=== PATIENT | male | born 1960 | race Caucasian/White ===

== ENCOUNTER 2017-07-09 11:57 | Emergency (ER) | payer BC ==
[2017-07-09] MEDS ORDERED: methylPREDNISolone Sodium Succinate 125 MG/2 ML SDV IVPUSH ONE (12:16)
[2017-07-09] MEDS ORDERED: Albuterol/Ipratropium 3.0-0.5 MG/3 ML Neb Soln NEB ONE (12:16)
[2017-07-09] MEDS ORDERED: Sodium Chloride 0.9% 10 ML Syringe FLUSH PRN (12:16)
[2017-07-09] MEDS ORDERED: Sodium Chloride 0.9% 2.5 ML Syringe FLUSH PRN (12:16)
--- NOTE | 2017-07-09 12:20 | EDM.PDOC ---
ED HPI GENERAL MEDICAL PROBLEM - General Chief Complaint: Respiratory Problem Stated Complaint: CHEST CONGESTION Time Seen by Provider: 07/09/17 12:10 - History of Present Illness INITIAL COMMENTS - FREE TEXT/NARRATIVE: HISTORY AND PHYSICAL: History of present illness: The patient is a 57-year-old male who follows in our family practice clinic but has not been there recently and did not get his influenza shot this year and presents with complaints of shortness of breath wheezing coughing congestion for the last several days. According to the he has been feeling rundown and coughing for the last 2-3 days and he felt very short of breath last evening so he did a nebulizer treatment which improved his symptoms significantly. The patient has a nebulizer machine at home to use as needed because he has a history of sarcoidosis and has had pneumonia several times in the past. He has not been using it regularly. The patient was a smoker until several years ago when he has quit. Patient says the cough has been productive of phlegm but is not bloody or green and he has not had a fever nasal congestion or sore throat. She's been eating and drinking normally and has no abdominal pain nausea or vomiting. He says that he does feel short of breath currently any last get nebulizer treatment at approximately 9 AM, 3 hours ago. He says the nebs significantly improve his symptoms and he has not been on steroids for quite some time. He has no leg pain or swelling but he does feel chest discomfort and tightness when he feels like he cannot take a deep breath. His chest discomfort is bilateral. Review of systems: As per history of present illness and below otherwise all systems reviewed and negative. Past medical history: As per history of present illness and as reviewed below otherwise noncontributory. Surgical history: As per history of present illness and as reviewed below otherwise noncontributory. Social history: No reported history of drug or alcohol abuse. Family history: As per history of present illness and as reviewed below otherwise noncontributory. Physical exam: Gen.: Well-developed well-nourished overweight man who is nontoxic but speaking clearly in the ED without breathlessness. Vital signs have been reviewed by me. HEENT: Atraumatic, normocephalic, pupils reactive, negative for conjunctival pallor or scleral icterus, mucous membranes moist, throat clear, neck supple, nontender, trachea midline. Lungs: Diminished air exchange throughout all browning with a fine expiratory wheeze in the bases, there is no work of breathing or sensory muscle use, breath sounds equal bilaterally, chest nontender. Heart: S1S2, regular, negative for clicks, rubs, or JVD. Abdomen: Soft, nondistended, nontender. Negative for masses or hepatosplenomegaly. Negative for costovertebral tenderness. Pelvis: Stable nontender. Genitourinary: Deferred. Rectal: Deferred. Extremities: Atraumatic, negative for cords or calf pain. Neurovascular unremarkable. No pedal edema or leg asymmetry Neuro: Awake, alert, oriented. Cranial nerves II through XII unremarkable. Cerebellum unremarkable. Motor and sensory unremarkable throughout. Exam nonfocal. Diagnostics: EKG chest x-ray CBC CMP troponin influenza lactic acid Therapeutics: IV IV fluids duo neb Solu-Medrol Rocephin I discussed with the patient and at bedside all testing results and the patient overall says he feels improved. He has no longer wheezing and is moving air much better on my reevaluation with only a very fine squeaky expiratory wheeze at the left base. His oxygen saturation has always been good here. Patient was offered admission and says he would prefer to try to go home as he has a nebulizer machine at home with albuterol. I will prescribe duo nebs as well as an inhaler and spacer for home. I will give him prednisone for home. Because of his high risk profile and given him a dose of Rocephin here and will send him home on Cefdnir to start tomorrow. I've advised him to have close follow-up with his provider the clinic and reasons to return to the ED. Impression: Bronchitis/bronchospasm with history of sarcoidosis improved Definitive disposition and diagnosis as appropriate pending reevaluation and review of above. Middle Chest Pain Score (Numeric/FACES): 8 - Related Data Allergies Allergy/AdvReac Type Severity Reaction Status Date / Time No Known Allergies Allergy Verified 07/09/17 12:09 Home Meds: Home Meds Albuterol [Ventolin HFA] 1 - 2 puff INH Q4H PRN 11/23/15 [History] Albuterol/Ipratropium [DuoNeb 3.0-0.5 MG/3 ML] 3 ml NEB ASDIRECTED 07/09/17 [ History] amLODIPine Besylate/Benazepril [Amlodipine-Benazepril 10-20 MG] 1 tab PO DAILY 07/09/17 [History] Past Medical History HEENT History: Reports: Other (See Below) Other HEENT History: wears glasses, has dentures but does not wear them Cardiovascular History: Reports: Hypertension Respiratory History: Reports: Pneumonia, Recurrent, Pulmonary Fibrosis, Other ( See Below) Other Respiratory History: sarcoidosis Gastrointestinal History: Reports: Hepatitis Other Gastrointestinal History: hx of Hepatitis C, states has been clear 6 months Genitourinary History: Reports: None Musculoskeletal History: Reports: Fracture Other Musculoskeletal History: hx of fx ankle, wrist, fingers Neurological History: Reports: None Psychiatric History: Reports: None Endocrine/Metabolic History: Reports: Obesity/BMI 30+ Hematologic History: Reports: None Immunologic History: Reports: None Oncologic (Cancer) History: Reports: None Dermatologic History: Reports: None - Infectious Disease History Infectious Disease History: Reports: Hepatitis C - Past Surgical History Head Surgeries/Procedures: Reports: None Cardiovascular Surgical History: Reports: None Male Surgical History: Reports: None Endocrine Surgical History: Reports: None Neurological Surgical History: Reports: None Oncologic Surgical History: Reports: None Dermatological Surgical History: Reports: None Social & Family History - Family History Family Medical History: Noncontributory - Tobacco Use Smoking Status *Q: Former Smoker Years of Tobacco use: 20 Used Tobacco, but Quit: Yes Month Tobacco Last Used: 2013 - Caffeine Use Caffeine Use: Reports: Energy Drinks, Soda - Alcohol Use Days Per Week of Alcohol Use: 1 Number of Drinks Per Day: 1 Total Drinks Per Week: 1 - Recreational Drug Use Recreational Drug Use: No ED ROS GENERAL - Review of Systems Review Of Systems: ROS reveals no pertinent complaints other than HPI. ED EXAM, GENERAL - Physical Exam Exam: See Below (See dictation) Course - Vital Signs Last Recorded V/S: Last Vital Signs Temp 36.6 C 07/09/17 12:06 Pulse 107 H 07/09/17 12:06 Resp 20 07/09/17 12:06 BP 124/91 H 07/09/17 12:06 Pulse Ox 96 07/09/17 12:34 - Orders/Labs/Meds Orders: Active Orders 24 hr Category Date Time Status Cardiac Monitoring [RC] . DIRECTED Care 07/09/17 12:15 Active Communication Order [RC] STAT Care 07/09/17 14:24 Ordered EKG Documentation Completion [RC] STAT Care 07/09/17 12:15 Active Oxygen Therapy, ED [RC] ASDIRECTED Care 07/09/17 12:15 Active RT Aerosol Therapy [RC] ASDIRECTED Care 07/09/17 12:16 Active Chest 2V [CR] Stat Exams 07/09/17 12:15 Taken Sodium Chloride 0.9% [Normal Saline] 500 ml Med 07/09/17 12:30 Active IV STAT Sodium Chloride 0.9% [Saline Flush] Med 07/09/17 12:16 Active 10 ml FLUSH ASDIRECTED PRN Sodium Chloride 0.9% [Saline Flush] Med 07/09/17 12:16 Active 2.5 ml FLUSH ASDIRECTED PRN cefTRIAXone [Rocephin in Dextrose,Iso-Osm 2 GM/50 ML] 2 Med 07/09/17 14:22 Ordered gm Premix Bag 1 bag IV ONETIME Saline Lock Insert [OM.PC] Stat Oth 07/09/17 12:15 Ordered Medication Orders Sodium Chloride (Normal Saline) 500 mls @ 999 mls/hr IV STAT YOSELIN Last Admin: 07/09/17 12:40 Dose: 999 mls/hr Sodium Chloride (Saline Flush) 10 ml FLUSH ASDIRECTED PRN PRN Reason: Keep Vein Open Sodium Chloride (Saline Flush) 2.5 ml FLUSH ASDIRECTED PRN PRN Reason: Keep Vein Open Labs: Laboratory Tests 07/09/17 07/09/17 07/09/17 Range/Units 12:30 12:30 12:30 WBC 7.57 (4.0-11.0) K/uL RBC 5.80 (4.50-5.90) M/uL Hgb 17.4 H (13.0-17.0) g/dL Hct 50.6 H (38.0-50.0) % MCV 87.2 (80.0-98.0) fL MCH 30.0 (27.0-32.0) pg MCHC 34.4 (31.0-37.0) g/dL RDW Std Deviation 42.8 (28.0-62.0) fl RDW Coeff of Kelly 14 (11.0-15.0) % Plt Count 210 (150-400) K/uL MPV 9.20 (7.40-12.00) fL Neut % (Auto) 65.7 (48.0-80.0) % Lymph % (Auto) 15.9 L (16.0-40.0) % Adams % (Auto) 11.9 (0.0-15.0) % Eos % (Auto) 5.7 (0.0-7.0) % Baso % (Auto) 0.8 (0.0-1.5) % Neut # (Auto) 5.0 (1.4-5.7) K/uL Lymph # (Auto) 1.2 (0.6-2.4) K/uL Adams # (Auto) 0.9 H (0.0-0.8) K/uL Eos # (Auto) 0.4 (0.0-0.7) K/uL Baso # (Auto) 0.1 (0.0-0.1) K/uL Nucleated RBC % 0.0 /100WBC Nucleated RBCs # 0 K/uL Lactate 1.2 (0.20-2.00) mmol/L Sodium 139 (136-146) mmol/L Potassium 4.1 (3.5-5.1) mmol/L Chloride 106 (98-110) mmol/L Carbon Dioxide 22 (21-31) mmol/L BUN 20 (6.0-23.0) mg/dL Creatinine 1.1 (0.6-1.5) mg/dL Est Cr Clr Drug Dosing 83.28 mL/min Estimated GFR (MDRD) > 60.0 ml/min Glucose 102 (60-110) mg/dL Calcium 10.3 (8.8-10.8) mg/dL Total Bilirubin 0.9 (0.1-1.5) mg/dL AST 18 (5-40) IU/L ALT 21 (8-54) IU/L Alkaline Phosphatase 76 (40-150) Troponin I < 0.10 (0.0-0.29) NG/ML Total Protein 8.0 (6.0-8.0) g/dL Albumin 4.3 (3.5-5.0) g/dL Globulin 3.7 H (2.0-3.5) g/dL Albumin/Globulin Ratio 1.2 L (1.3-2.8) Meds: Medications Generic Name Dose Route Start Last Admin Trade Name Freq PRN Reason Stop Dose Admin Sodium Chloride 500 mls @ 999 mls/hr 07/09/17 12:30 07/09/17 12:40 Normal Saline IV 999 mls/hr STAT YOSELIN Administration Sodium Chloride 10 ml 07/09/17 12:16 Saline Flush FLUSH ASDIRECTED PRN Keep Vein Open Sodium Chloride 2.5 ml 07/09/17 12:16 Saline Flush FLUSH ASDIRECTED PRN Keep Vein Open Discontinued Medications Generic Name Dose Route Start Last Admin Trade Name Freq PRN Reason Stop Dose Admin Albuterol/Ipratropium 3 ml 07/09/17 12:16 07/09/17 12:26 Duoneb 3.0-0.5 Mg/3 Ml NEB 07/09/17 12:17 3 ml ONETIME ONE Administration Methylprednisolone Sodium Succinate 125 mg 07/09/17 12:16 07/09/17 12:40 Solu-Medrol IVPUSH 07/09/17 12:17 125 mg ONETIME ONE Administration Departure - Departure Time of Disposition: 14:26 Disposition: Home, Self-Care 01 Condition: Good Clinical Impression: Bronchitis, acute, with bronchospasm - Discharge Information Referrals: Lionel Muhammad MD [Primary Care Provider] - Forms: ED Department Discharge Additional Instructions: The following information is given to patients seen in the emergency department who are being discharged to home. This information is to outline your options for follow-up care. We provide all patients seen in our emergency department with a follow-up referral. The need for follow-up, as well as the timing and circumstances, are variable depending upon the specifics of your emergency department visit. If you don't have a primary care physician on staff, we will provide you with a referral. We always advise you to contact your personal physician following an emergency department visit to inform them of the circumstance of the visit and for follow-up with them and/or the need for any referrals to a consulting specialist. The emergency department will also refer you to a specialist when appropriate. This referral assures that you have the opportunity for followup care with a specialist. All of these measure are taken in an effort to provide you with optimal care, which includes your followup. Under all circumstances we always encourage you to contact your private physician who remains a resource for coordinating your care. When calling for followup care, please make the office aware that this follow-up is from your recent emergency room visit. If for any reason you are refused follow-up, please contact the [facility] emergency department at and ask to speak to the emergency department charge nurse. [facility] Primary care- Internal Medicine and Family [address] [address] Please use all medications as prescribed and do treatments with your nebulizer every 6 hours for the next 2 days and then every 6 hours as needed. Please take antibiotics and steroids as prescribed starting these prescriptions tomorrow. Push hydration and rest and please contact the clinic for follow-up appointment in the next 1-2 days. Return to ER as needed and as discussed - My Orders Last 24 Hours: My Active Orders 07/09/17 12:15 Cardiac Monitoring [RC] . DIRECTED EKG Documentation Completion [RC] STAT Oxygen Therapy, ED [RC] ASDIRECTED Chest 2V [CR] Stat Saline Lock Insert [OM.PC] Stat 07/09/17 12:16 RT Aerosol Therapy [RC] ASDIRECTED Sodium Chloride 0.9% [Saline Flush] 10 ml FLUSH ASDIRECTED PRN Sodium Chloride 0.9% [Saline Flush] 2.5 ml FLUSH ASDIRECTED PRN 07/09/17 12:30 Sodium Chloride 0.9% [Normal Saline] 500 ml IV STAT 07/09/17 14:22 cefTRIAXone [Rocephin in Dextrose,Iso-Osm 2 GM/50 ML] 2 gm Premix Bag 1 bag IV ONETIME 07/09/17 14:24 Communication Order [RC] STAT - Assessment/Plan Last 24 Hours: My Active Orders 07/09/17 12:15 Cardiac Monitoring [RC] . DIRECTED EKG Documentation Completion [RC] STAT Oxygen Therapy, ED [RC] ASDIRECTED Chest 2V [CR] Stat Saline Lock Insert [OM.PC] Stat 07/09/17 12:16 RT Aerosol Therapy [RC] ASDIRECTED Sodium Chloride 0.9% [Saline Flush] 10 ml FLUSH ASDIRECTED PRN Sodium Chloride 0.9% [Saline Flush] 2.5 ml FLUSH ASDIRECTED PRN 07/09/17 12:30 Sodium Chloride 0.9% [Normal Saline] 500 ml IV STAT 07/09/17 14:22 cefTRIAXone [Rocephin in Dextrose,Iso-Osm 2 GM/50 ML] 2 gm Premix Bag 1 bag IV ONETIME 07/09/17 14:24 Communication Order [RC] STAT
[2017-07-09] MEDS ORDERED: Sodium Chloride 0.9% 500 ML IV SCH (12:30)
[2017-07-09 12:53] LABS: CHLORIDE,CL 106 mmol/L (98-110); SODIUM,NA 139 mmol/L (136-146)
[2017-07-09] MEDS ORDERED: cefTRIAXone 2 GM in Premix Bag 1 BAG IV ONE (14:22)
[2017-07-09 19:32] VITALS: BP 135/89
--- NOTE | 2017-07-10 20:21 | CR ---
EXAM DATE: 07/09/17 PATIENT'S AGE: 57 Patient: IAN LIVE Facility: [place], [place] Site . Site : [id number] Study: XRay Chest [id number]/1/2018 12:59:37 PM Ordering Physician: Maryellen Anaya Final Report: HISTORY: Pain and shortness of breath. Findings: Comparison is made to previous study dated 07/13/2014. The lungs are clear and there is no evidence for pneumonia or pneumothorax. Slight scarring is again noted along the minor fissure. Cardiac silhouette size is within normal limits. Impression: Negative study for pneumonia or interstitial edema. Dictated by Chilo Rangel MD @ Jul 09 2017 1:32PM (Electronic Signature) Report Signed by Proxy. PAVAN
== END 2017-07-09 15:35 | disposition home or self-care (01) ==
LOC: MW.ED 11:57
DX: J20.9 Acute bronchitis, unspecified (principal); I10 Essential (primary) hypertension; Z79.899 Other long term (current) drug therapy; Z87.891 Personal history of nicotine dependence
CPT/HCPCS: 36415; 71046; 80053; 83605; 84484; 85025; 87804; 93005; 94640; 96361; 96365; 96375; 99285; J0696; J2930; J7040; 99284

== ENCOUNTER 2018-12-10 21:52 | Emergency (ER) | payer BC ==
[2018-12-10 22:29] VITALS: BP 151/97
[2018-12-10] MEDS ORDERED: Ketorolac 60 MG/2 ML SDV IM ONE (22:32)
--- NOTE | 2018-12-10 22:36 | EDM.PDOC ---
ED HPI GENERAL MEDICAL PROBLEM - General Chief Complaint: Chest Pain Stated Complaint: INJURED RIBS Time Seen by Provider: 12/10/18 22:28 - History of Present Illness INITIAL COMMENTS - FREE TEXT/NARRATIVE: HISTORY AND PHYSICAL: History of present illness: The patient is a 58-year-old male with a history of sarcoidosis who presents with pain to his right chest wall/rib area that occurred after he twisted while getting out of his truck this evening. The patient says that before these events he had no chest pain shortness of breath no flank pain no systemic complaints whatsoever. He has a chronic cough that is not new or different. He said that as he was getting out of the truck he twisted and suddenly felt pain in this area but he has no abdominal pain or flank pain. He's had no fever chills or shortness of breath but says that there is discomfort in one specific area when he takes a deep breath. He's been eating and drinking normally without nausea vomiting or diarrhea. He did not take anything for the pain prior to coming here Review of systems: As per history of present illness and below otherwise all systems reviewed and negative. Past medical history: As per history of present illness and as reviewed below otherwise noncontributory. Surgical history: As per history of present illness and as reviewed below otherwise noncontributory. Social history: No reported history of drug or alcohol abuse. Family history: As per history of present illness and as reviewed below otherwise noncontributory. Physical exam: He is speaking clearly and easily in the ED without breathlessness and vital signs are noted by me HEENT: Atraumatic, normocephalic, negative for conjunctival pallor or scleral icterus, mucous membranes moist, throat clear, neck supple, nontender, trachea midline. Lungs: Clear to auscultation diminished in the bases bilaterally, breath sounds equal bilaterally, chest wall with reproducible tenderness with palpation of the lower right ribs anteriorly without defects deformities or crepitus and there is no ecchymosis Heart: S1S2, regular, and rhythm no overt murmurs Abdomen: Soft, nondistended, nontender. Actually no right upper quadrant tenderness Negative for masses or hepatosplenomegaly. Negative for costovertebral tenderness. Pelvis: Deferred Genitourinary: Deferred. Rectal: Deferred. Extremities: Atraumatic, negative for cords or calf pain. Neurovascular unremarkable. Neuro: Awake, alert, oriented. Cranial nerves II through XII unremarkable. Cerebellum unremarkable. Motor and sensory unremarkable throughout. Exam nonfocal. Diagnostics: Right ribs with chest x-ray Therapeutics: Toradol Impression: Right chest wall pain strain Definitive disposition and diagnosis as appropriate pending reevaluation and review of above. right lower breast Pain Score (Numeric/FACES): 9 - Related Data Allergies Allergy/AdvReac Type Severity Reaction Status Date / Time No Known Allergies Allergy Verified 12/10/18 22:30 Home Meds: Home Meds Albuterol [Ventolin HFA] 1 - 2 puff INH Q4H PRN 11/23/15 [History] amLODIPine Besylate/Benazepril [Amlodipine-Benazepril 10-20 MG] 10 - 40 mg PO DAILY 07/09/17 [History] Past Medical History HEENT History: Reports: Other (See Below) Other HEENT History: wears glasses, has dentures but does not wear them Cardiovascular History: Reports: Hypertension Respiratory History: Reports: Pneumonia, Recurrent, Pulmonary Fibrosis, Other ( See Below) Other Respiratory History: sarcoidosis Gastrointestinal History: Reports: Hepatitis Other Gastrointestinal History: hx of Hepatitis C, states has been clear 6 months Genitourinary History: Reports: None Musculoskeletal History: Reports: Fracture Other Musculoskeletal History: hx of fx ankle, wrist, fingers Neurological History: Reports: None Psychiatric History: Reports: None Endocrine/Metabolic History: Reports: Obesity/BMI 30+ Hematologic History: Reports: None Immunologic History: Reports: None Oncologic (Cancer) History: Reports: None Dermatologic History: Reports: None - Infectious Disease History Infectious Disease History: Reports: Hepatitis C - Past Surgical History Head Surgeries/Procedures: Reports: None Cardiovascular Surgical History: Reports: None Male Surgical History: Reports: None Endocrine Surgical History: Reports: None Neurological Surgical History: Reports: None Oncologic Surgical History: Reports: None Dermatological Surgical History: Reports: None Social & Family History - Family History Family Medical History: Noncontributory - Caffeine Use Caffeine Use: Reports: Energy Drinks, Soda ED ROS GENERAL - Review of Systems Review Of Systems: ROS reveals no pertinent complaints other than HPI. ED EXAM, GENERAL - Physical Exam Exam: See Below (See dictation) Course - Vital Signs Last Recorded V/S: Last Vital Signs Temp 36.2 C 12/10/18 22:27 Pulse 80 06/04/19 22:27 Resp 22 H 12/10/18 22:27 BP 151/97 H 12/10/18 22:27 Pulse Ox 96 12/10/18 22:27 - Orders/Labs/Meds Meds: Medications Discontinued Medications Generic Name Dose Route Start Last Admin Trade Name Terrie PRN Reason Stop Dose Admin Ketorolac Tromethamine 60 mg 12/10/18 22:32 12/10/18 22:59 Toradol IM 12/10/18 22:33 60 mg ONETIME ONE Administration Departure - Departure Time of Disposition: 23:56 Disposition: Home, Self-Care 01 Condition: Good Clinical Impression: Strain of chest wall Qualifiers: Encounter type: initial encounter Qualified Code(s): S29.011A - Strain of muscle and tendon of front wall of thorax, initial encounter - Discharge Information Referrals: Vinh Shearer MD [Primary Care Provider] - Forms: ED Department Discharge Additional Instructions: The following information is given to patients seen in the emergency department who are being discharged to home. This information is to outline your options for follow-up care. We provide all patients seen in our emergency department with a follow-up referral. The need for follow-up, as well as the timing and circumstances, are variable depending upon the specifics of your emergency department visit. If you don't have a primary care physician on staff, we will provide you with a referral. We always advise you to contact your personal physician following an emergency department visit to inform them of the circumstance of the visit and for follow-up with them and/or the need for any referrals to a consulting specialist. The emergency department will also refer you to a specialist when appropriate. This referral assures that you have the opportunity for followup care with a specialist. All of these measure are taken in an effort to provide you with optimal care, which includes your followup. Under all circumstances we always encourage you to contact your private physician who remains a resource for coordinating your care. When calling for followup care, please make the office aware that this follow-up is from your recent emergency room visit. If for any reason you are refused follow-up, please contact the [facility] emergency department at and ask to speak to the emergency department charge nurse. [facility] Primary care- Internal Medicine and Family [place] [id number] [place] [id number] Ice to area of discomfort and use [id number] ibuprofen, 600-800 mg, every 6-8 hours for pain and you may also add Tylenol. Only use the Ultram/tramadol if the [id number] meds do not work. Please only take the prescribed medication when you're at home. These call and schedule a follow-up appointment with your provider or one of our providers for reevaluation and further care and return to ER as needed and as discussed
--- NOTE | 2018-12-10 23:52 | CR ---
INDICATION: Pain after twisting injury. COMPARISON: Chest two views from 08/20/2017 TECHNIQUE: The right ribs were examined with AP, inferior shallow oblique spot and inferior AP spot views along with a PA view of the chest for a total of 4 views. FINDINGS: There is no sign of abnormality of the ribs, with no sign of fracture or destructive lesion. The lungs are clear and the heart and mediastinum are normal in appearance. Again seen is eventration of the medial right hemidiaphragm. IMPRESSION: Normal right ribs and PA chest. Dictated by Mark Soto MD @ Dec 10 2018 11:48PM Signed by Dr. Mark Soto @ Dec 10 2018 11:51PM
== END 2018-12-11 00:05 | disposition home or self-care (01) ==
LOC: MW.ED 21:52
DX: S29.011A Strain of muscle and tendon of front wall of thorax, initial encounter (principal); I10 Essential (primary) hypertension; Z79.899 Other long term (current) drug therapy; X50.9XXA Other and unspecified overexertion or strenuous movements or postures, initial encounter
CPT/HCPCS: 71101; 96372; 99283; J1885

== ENCOUNTER 2020-02-16 21:07 | Inpatient (IN) | payer BC, OTHER ==
[2020-02-16] MEDS ORDERED: Sodium Chloride 0.9% 10 ML Syringe FLUSH PRN (21:21)
[2020-02-16] MEDS ORDERED: Sodium Chloride 0.9% 1,000 ML IV ONE ×2 (21:21→23:48)
[2020-02-16] MEDS ORDERED: Ketorolac 15 MG/ML SDV IVPUSH ONE (21:21)
[2020-02-16] MEDS ORDERED: Sodium Chloride 0.9% 2.5 ML Syringe FLUSH PRN (21:21)
[2020-02-16] MEDS ORDERED: Ondansetron 4 MG/2 ML SDV IVPUSH ONE (21:21)
[2020-02-16 21:59] LABS: CARBON DIOXIDE,CO2 20.6 mmol/L (21.0-32.0); POTASSIUM,K 3.8 mmol/L (3.5-5.1)
[2020-02-16] MEDS ORDERED: Insulin Regular, Human 100 Units/ML 10 ML Vial IVPUSH ONE (23:45)
--- NOTE | 2020-02-17 00:14 | US ---
INDICATION: Right upper quadrant abdominal pain. FINDINGS: Right upper quadrant abdominal ultrasound was performed. The study limited patient`s body habitus and bowel gas. The liver is of diffuse increased echogenicity consistent with fatty infiltration of the liver. There is no focal liver lesion seen. The liver appears enlarged. There is sludge and stones in the gallbladder a there is no gallbladder wall thickening seen on study. The common bile duct is not dilated measuring 0.5 cm. There is limited visualization of the right kidney. There is no hydronephrosis seen in the right kidney. The aorta and pancreas are not well seen secondary to overlying bowel gas. The inferior vena cava is unremarkable. IMPRESSION: 1. Study limited by patient`s body habitus and overlying bowel gas. 2. Stones and sludge in the gallbladder. No gallbladder wall thickening or biliary dilatation. 3. Fatty infiltration of the liver. Dictated by Chapin Urrutia MD @ Feb 17 2020 12:07AM Signed by Dr. Chapin Urrutia @ Feb 17 2020 12:13AM
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
--- NOTE | 2020-02-17 01:35 | CT ---
Indication: Diarrhea and vomiting Technique: Nonenhanced axial CT imaging through the abdomen and pelvis. Sagittal and coronal reconstructions are provided. Comparison: None Findings: There is mild distention and wall thickening involving a segment of distal small bowel, most likely representing ileitis. There is no evidence of distal obstruction. The proximal small bowel is unremarkable. There is mild diverticulosis of the descending and sigmoid colon. There is no colonic wall thickening or pericolonic inflammatory stranding. Fluid in the colon consistent with diarrhea. The liver parenchyma demonstrates heterogeneously decreased attenuation, consistent with steatosis. There is also irregular nodular contour of the liver margins, suggesting cirrhosis. The spleen is not enlarged. There is no intraperitoneal free fluid. The gallbladder, pancreas, and adrenal glands are unremarkable. A few punctate nonobstructing renal stones are noted bilaterally. There is no hydronephrosis. Several nonspecific prominent lymph nodes are noted in the retroperitoneum. There is normal caliber of the abdominal aorta. Mild degenerative changes are noted in the lumbar spine. The included lung bases are clear. Impression: 1. Mild distention and wall thickening involving a segment of distal small bowel, most likely representing nonspecific ileitis. 2. Hepatic steatosis and likely cirrhosis, without evidence of portal hypertension. Correlate clinically. 3. Colonic diverticulosis without evidence of acute diverticulitis. 4. Nephrolithiasis without urinary obstruction. Please note that all CT scans at this facility use dose modulation, iterative reconstruction, and/or weight-based dosing when appropriate to reduce radiation dose to as low as reasonably achievable. Dictated by Jem Glover MD @ Feb 17 2020 1:22AM Signed by Dr. Jem Glover @ Feb 17 2020 1:34AM
[2020-02-17] MEDS ORDERED: Ondansetron 4 MG/2 ML SDV IVPUSH PRN (02:58)
[2020-02-17] MEDS: Sodium Chloride 0.9% 1,000 ML IV SCH ×3 (03:15→22:15)
[2020-02-17 06:03] LABS: CARBON DIOXIDE,CO2 22.8 mmol/L (21.0-32.0); POTASSIUM,K 3.7 mmol/L (3.5-5.1)
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
[2020-02-17 08:17] LABS: HEMOGLOBIN A1C 10.4 % (4.5-6.2)
[2020-02-17] MEDS ORDERED: Ketorolac 15 MG/ML SDV IVPUSH PRN ×2 (08:24→08:56)
[2020-02-17] MEDS ORDERED: Magnesium Sulfate/Water 2 GM in Premix Bag 1 BAG IV ONE (08:43)
[2020-02-17] MEDS ORDERED: Sodium Chloride 0.9% 1,000 ML IV ONE ×2 (09:27→23:29)
[2020-02-17] MEDS: Lisinopril/Hydrochlorothiazide 10-12.5 MG Tab PO SCH (10:37)
[2020-02-17] MEDS: Diltiazem 120 MG Cap.CD PO SCH (10:38)
[2020-02-17] MEDS: Insulin Aspart 100 Units/ML 3 ML Pen SUBCUT SCH ×2 (12:05→18:18)
[2020-02-17] MEDS: Heparin Sodium 5,000 Units/ML Vial SUBCUT SCH ×2 (13:34→21:21)
[2020-02-17] MEDS: Insulin Glargine,Human Rec. Analog 100 Units/ML 3 ML Pen SUBCUT SCH (21:20)
[2020-02-17] MEDS: atorvaSTATin 40 MG Tab PO SCH (21:23)
[2020-02-17] MEDS: Metoprolol Tartrate 50 MG Tab PO SCH (21:23)
[2020-02-18] MEDS ORDERED: Sodium Chloride 0.9% 500 ML IV ONE (02:00)
[2020-02-18] MEDS: Heparin Sodium 5,000 Units/ML Vial SUBCUT SCH ×3 (06:06→21:24)
[2020-02-18 06:27] LABS: BLOOD UREA NITROGEN,BUN 13 mg/dL (7.0-18.0); CARBON DIOXIDE,CO2 23.3 mmol/L (21.0-32.0); CHLORIDE,CL 104 mmol/L (98-107); GLUCOSE RANDOM 214 mg/dL (74-106); POTASSIUM,K 3.4 mmol/L (3.5-5.1); SODIUM,NA 136 mmol/L (136-148)
[2020-02-18] MEDS ORDERED: Calcium Gluconate 10% 1 GM/10 ML SDV IVPUSH ONE (07:08)
[2020-02-18] MEDS ORDERED: Potassium Chloride 20 MEQ Tab.ER PO ONE (07:08)
[2020-02-18] MEDS: Insulin Aspart 100 Units/ML 3 ML Pen SUBCUT SCH ×3 (08:22→17:23)
[2020-02-18] MEDS: Diltiazem 120 MG Cap.CD PO SCH (08:26)
[2020-02-18] MEDS: Lisinopril/Hydrochlorothiazide 10-12.5 MG Tab PO SCH (08:27)
[2020-02-18] MEDS: Metoprolol Tartrate 50 MG Tab PO SCH ×2 (08:27→21:23)
[2020-02-18] MEDS: Sodium Chloride 0.9% 1,000 ML IV SCH ×2 (08:29→16:32)
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
[2020-02-18] MEDS: Ketorolac 30 MG/ML SDV IVPUSH PRN (12:37)
[2020-02-18] MEDS ORDERED: Albuterol/Ipratropium 3.0-0.5 MG/3 ML Neb Soln NEB PRN (14:41)
[2020-02-18] MEDS: atorvaSTATin 40 MG Tab PO SCH (21:23)
[2020-02-18] MEDS: Insulin Glargine,Human Rec. Analog 100 Units/ML 3 ML Pen SUBCUT SCH (21:24)
[2020-02-18] MEDS ORDERED: Loperamide 2 MG Cap PO STA (21:33)
[2020-02-18 22:11] LABS: BLOOD UREA NITROGEN,BUN 10 mg/dL (7.0-18.0); CARBON DIOXIDE,CO2 22.9 mmol/L (21.0-32.0); CHLORIDE,CL 106 mmol/L (98-107); GLUCOSE RANDOM 139 mg/dL (74-106); POTASSIUM,K 3.8 mmol/L (3.5-5.1); SODIUM,NA 138 mmol/L (136-148)
[2020-02-18] MEDS ORDERED: Magnesium Sulfate/Water 2 GM in Premix Bag 1 BAG IV ONE (23:28)
[2020-02-19] MEDS: Sodium Chloride 0.9% 1,000 ML IV SCH ×2 (04:58→20:51)
[2020-02-19 06:26] LABS: BLOOD UREA NITROGEN,BUN 8 mg/dL (7.0-18.0); CARBON DIOXIDE,CO2 21.7 mmol/L (21.0-32.0); CHLORIDE,CL 107 mmol/L (98-107); GLUCOSE RANDOM 151 mg/dL (74-106); POTASSIUM,K 3.8 mmol/L (3.5-5.1); SODIUM,NA 139 mmol/L (136-148)
[2020-02-19] MEDS: Heparin Sodium 5,000 Units/ML Vial SUBCUT SCH ×3 (06:32→23:01)
[2020-02-19] MEDS: Insulin Aspart 100 Units/ML 3 ML Pen SUBCUT SCH ×3 (06:58→17:24)
[2020-02-19] MEDS: Metoprolol Tartrate 50 MG Tab PO SCH ×2 (08:50→20:55)
[2020-02-19] MEDS ORDERED: Calcium Carbonate 500 MG Tab.Chew PO ONE (09:00)
[2020-02-19] MEDS: Ciprofloxacin in D5W 400 MG in Premix Bag 1 BAG IV SCH ×4 (10:36→23:02)
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
[2020-02-19] MEDS: metroNIDAZOLE/Normal Saline 500 MG in Premix Bag 1 BAG IV SCH ×2 (11:54→17:24)
[2020-02-19] MEDS: Ketorolac 30 MG/ML SDV IVPUSH PRN (17:29)
[2020-02-19] MEDS ORDERED: Loperamide 2 MG Cap PO ONE (18:00)
[2020-02-19] MEDS: atorvaSTATin 40 MG Tab PO SCH (20:50)
[2020-02-19] MEDS: Insulin Glargine,Human Rec. Analog 100 Units/ML 3 ML Pen SUBCUT SCH (20:51)
[2020-02-20] MEDS: metroNIDAZOLE/Normal Saline 500 MG in Premix Bag 1 BAG IV SCH ×5 (00:09→23:12)
[2020-02-20] MEDS: Heparin Sodium 5,000 Units/ML Vial SUBCUT SCH ×3 (05:05→21:25)
[2020-02-20] MEDS: Ketorolac 30 MG/ML SDV IVPUSH PRN ×2 (05:05→18:30)
[2020-02-20 06:20] LABS: BLOOD UREA NITROGEN,BUN 6 mg/dL (7.0-18.0); CHLORIDE,CL 106 mmol/L (98-107); GLUCOSE RANDOM 136 mg/dL (74-106); POTASSIUM,K 3.4 mmol/L (3.5-5.1); SODIUM,NA 137 mmol/L (136-148)
[2020-02-20] MEDS: Insulin Aspart 100 Units/ML 3 ML Pen SUBCUT SCH ×3 (06:50→18:14)
[2020-02-20] MEDS ORDERED: Potassium Chloride 20 MEQ Tab.ER PO ONE (07:08)
[2020-02-20] MEDS ORDERED: Calcium Carbonate 500 MG Tab.Chew PO ONE (07:09)
[2020-02-20] MEDS: Metoprolol Tartrate 50 MG Tab PO SCH ×2 (09:36→21:18)
[2020-02-20] MEDS: Loperamide 2 MG Cap PO PRN ×5 (09:39→21:17)
[2020-02-20] MEDS: Ciprofloxacin in D5W 400 MG in Premix Bag 1 BAG IV SCH ×4 (09:40→21:27)
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
[2020-02-20] MEDS: Sodium Chloride 0.9% 1,000 ML IV SCH (14:33)
[2020-02-20] MEDS: atorvaSTATin 40 MG Tab PO SCH (21:17)
[2020-02-20] MEDS: Insulin Glargine,Human Rec. Analog 100 Units/ML 3 ML Pen SUBCUT SCH (21:19)
[2020-02-21] MEDS: Loperamide 2 MG Cap PO PRN ×2 (01:19→04:54)
[2020-02-21] MEDS: Ketorolac 30 MG/ML SDV IVPUSH PRN (04:55)
[2020-02-21] MEDS: Heparin Sodium 5,000 Units/ML Vial SUBCUT SCH ×2 (04:59→13:44)
[2020-02-21] MEDS: metroNIDAZOLE/Normal Saline 500 MG in Premix Bag 1 BAG IV SCH ×2 (05:00→12:13)
[2020-02-21 06:42] LABS: BLOOD UREA NITROGEN,BUN 6 mg/dL (7.0-18.0); CARBON DIOXIDE,CO2 24.1 mmol/L (21.0-32.0); CHLORIDE,CL 108 mmol/L (98-107); GLUCOSE RANDOM 121 mg/dL (74-106); POTASSIUM,K 3.6 mmol/L (3.5-5.1); SODIUM,NA 140 mmol/L (136-148)
[2020-02-21] MEDS ORDERED: Acetaminophen 500 MG Tab PO PRN (07:01)
[2020-02-21] MEDS: Insulin Aspart 100 Units/ML 3 ML Pen SUBCUT SCH ×2 (07:03→12:46)
[2020-02-21] MEDS: Sodium Chloride 0.9% 1,000 ML IV SCH (07:12)
[2020-02-21] MEDS ORDERED: Ibuprofen 400 MG Tab PO ONE (08:57)
[2020-02-21] MEDS: Metoprolol Tartrate 50 MG Tab PO SCH (08:57)
[2020-02-21] MEDS: Ciprofloxacin in D5W 400 MG in Premix Bag 1 BAG IV SCH ×2 (09:38)
[2020-02-21 12:09] VITALS: BP 135/84; PULSE 60
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
== END 2020-02-21 14:10 | disposition home or self-care (01) | DRG 249 ==
LOC: MW.ED 21:07 → MW.MS 02-17 02:02 → OBSVTOIN 02-19 10:52 → MW.MS 02-19 10:53
PROVIDERS: ADMIT Internal Medicine; ATTEND Internal Medicine
DX: K52.9 Noninfective gastroenteritis and colitis, unspecified (principal); E11.9 Type 2 diabetes mellitus without complications; I10 Essential (primary) hypertension; E66.9 Obesity, unspecified; K74.60 Unspecified cirrhosis of liver; E86.0 Dehydration; D86.9 Sarcoidosis, unspecified; Z20.828 Contact with and (suspected) exposure to other viral communicable diseases; K76.0 Fatty (change of) liver, not elsewhere classified; K80.20 Calculus of gallbladder without cholecystitis without obstruction; Z87.891 Personal history of nicotine dependence; Z68.42 Body mass index [BMI] 45.0-49.9, adult
CPT/HCPCS: 36415; 74176; 74176-26; 76705; 76705-26; 80048; 80053; 81001; 82962; 83036; 83605; 83690; 83735; 85025; 87045; 87046; 87324; 87449; 87899; 93005; 94640; 96361; 96365; 96367; 96372; 96374; 96375; 96376; 99284-25; A9270-GY; G0378; J0610; J0744; J1644; J1815-GY; J1885; J2405; J3475; J3490; J7030; J7040; J7620-GY; U0002

== ENCOUNTER 2022-10-28 17:11 | Emergency (ER) | payer BC, OTHER ==
[2022-10-28] MEDS ORDERED: Morphine 4 MG/ML Syringe IVPUSH ONE ×2 (17:39→20:54)
[2022-10-28 18:22] LABS: CARBON DIOXIDE,CO2 25.9 mmol/L (21.0-32.0); POTASSIUM,K 3.4 mmol/L (3.5-5.1)
[2022-10-28] MEDS ORDERED: Iopamidol 755 MG/ML 500 ML Multipack Bottle IVPUSH ONE (18:53)
[2022-10-29 01:13] VITALS: BP 112/78; PULSE 86
== END 2022-10-28 21:32 | disposition home or self-care (01) ==
LOC: MW.ED 17:11
DX: S39.012A Strain of muscle, fascia and tendon of lower back, initial encounter (principal); K57.90 Diverticulosis of intestine, part unspecified, without perforation or abscess without bleeding; I10 Essential (primary) hypertension; E66.9 Obesity, unspecified; Z68.42 Body mass index [BMI] 45.0-49.9, adult; Z91.041 Radiographic dye allergy status; Z79.899 Other long term (current) drug therapy; Z86.16 Personal history of COVID-19; X50.0XXA Overexertion from strenuous movement or load, initial encounter
CPT/HCPCS: 36415; 72131; 74177; 80053; 85025; 96374; 96376; 99284; J2270; Q9967

== ENCOUNTER 2023-11-12 11:50 | Emergency (ER) | payer BC, OTHER ==
[2023-11-12 12:05] VITALS: BP 161/95; PULSE 66
[2023-11-12] MEDS: Lidocaine 1% 5 ML VIAL INJECT ONE (12:11)
[2023-11-12] MEDS: Diphtheria,Pertussis(Acell),Tetanus Vaccine 0.5 ML Syringe IM ONE (12:12)
== END 2023-11-12 12:35 | disposition home or self-care (01) ==
LOC: MW.ED 11:50
DX: S61.210A Laceration without foreign body of right index finger without damage to nail, initial encounter (principal); S61.212A Laceration without foreign body of right middle finger without damage to nail, initial encounter; I10 Essential (primary) hypertension; E66.9 Obesity, unspecified; Z79.899 Other long term (current) drug therapy; Z75.8 Other problems related to medical facilities and other health care; Z91.041 Radiographic dye allergy status; X58.XXXA Exposure to other specified factors, initial encounter
CPT/HCPCS: 12001; 90471; 90715; 99282-25; 99283; J3490

== ENCOUNTER 2023-11-24 11:15 | Emergency (ER) | payer BC, OTHER ==
[2023-11-24 19:32] VITALS: BP 131/79; PULSE 71
== END 2023-11-24 13:32 | disposition home or self-care (01) ==
LOC: MW.ED 11:15
DX: S61.210D Laceration without foreign body of right index finger without damage to nail, subsequent encounter (principal); I10 Essential (primary) hypertension; E66.9 Obesity, unspecified; Z91.041 Radiographic dye allergy status; Z75.8 Other problems related to medical facilities and other health care; Z79.899 Other long term (current) drug therapy; Z68.42 Body mass index [BMI] 45.0-49.9, adult; X58.XXXA Exposure to other specified factors, initial encounter
CPT/HCPCS: 99283